=== PATIENT | male | born 1935 | race Caucasian/White ===

== ENCOUNTER 2017-11-01 14:43 | Inpatient (IN) | payer OTHER, BC ==
[~2017-11-01] VITALS: Ht 175.3 cm; Wt 98.5 kg
[~2017-11-01 14:43] MED LIST: ACID CONTROL150 MG PO; APRESOLINE10 MG PO; APRESOLINE50 MG PO; BASAGLAR K100 UNIT/1 SC; Cardizem CD,LA,Cartia,Tiazac,Dilacor,Taztia PO; DILTIAZEM 24HR180 MG PO; FLUTICASONE PRO16 GM BOTH NARES; GLIMEPIRIDE4 MG PO; JANUMET 50/51 TABLET PO; KLOR-CON 1010 ME1 PO; LANSOPRAZOLE30 MG PO; LIPITOR40 MG PO; NEURONTIN100 MG PO; PRED FORTE100 DROP/5 LEFT EYE; RANITIDINE HCL150 MG PO; ROCALTROL0.25 MCG PO; TRADJENTA5 MG PO; TROSPIUM CHLORI20 MG PO; TYLENOL REGULA325 MG PO; WARFARIN SODIUM4 MG PO; WARFARIN SODIUM5 MG PO
[2017-11-03] MEDS ORDERED: COUMADIN4 MG PO (08:41)
[2017-11-03] MEDS ORDERED: VESICARE10 MG PO (08:42)
[2017-11-03] MEDS ORDERED: KLOR-CON 1010 ME1 PO (08:43)
[2017-11-03] MEDS ORDERED: IRON325 M1 PO (08:49)
[2017-12-06 06:01] VITALS: BP 138/64
[2017-12-06 06:23] LABS: INTER. NORMALIZED RATIO 1.1
[2017-12-06 06:26] LABS: PTT 25.9 SEC (25-37)
[2017-12-06 10:04] VITALS: BP 144/79
[2017-12-06 15:35] VITALS: BP 147/82
[2017-12-06 20:14] VITALS: BP 141/71
[2017-12-07] VITALS (7 sets, daily range): BP systolic 105–159; BP diastolic 53–78
[2017-12-07 04:57] LABS: HEMATOCRIT 32.6 % (38.0-50.0); HEMOGLOBIN 11.7 G/DL (12.5-16.6); MCV 96.2 FL (86-99)
[2017-12-07 05:02] LABS: CHLORIDE 107 mEq/L (99-109); POTASSIUM 4.4 mEq/L (3.7-5.4); SODIUM 140 mEq/L (136-147)
[2017-12-07 05:03] LABS: INTER. NORMALIZED RATIO 1.2
[2017-12-07 05:04] LABS: GLUCOSE 201 mg/dL (70-99)
[2017-12-07 05:08] LABS: CREATININE 1.4 mg/dL (0.6-1.3); GFR ESTIMATE (CALCULATED) 52 mL/min/ (58.99-99999)
[2017-12-07 05:09] LABS: UREA NITROGEN (BUN) 20 mg/dL (9-23)
[2017-12-08 03:52] VITALS: BP 137/63
[2017-12-08 05:21] LABS: HEMATOCRIT 28.9 % (38.0-50.0); HEMOGLOBIN 10.5 G/DL (12.5-16.6); MCV 94.8 FL (86-99)
[2017-12-08 05:28] LABS: INTER. NORMALIZED RATIO 1.3
[2017-12-08 08:00] VITALS: BP 145/74
[2017-12-08 20:13] VITALS: BP 108/53
[2017-12-09 00:17] VITALS: BP 124/61
[2017-12-09 06:12] LABS: INTER. NORMALIZED RATIO 1.2
[2017-12-09 08:23] VITALS: BP 115/61
[2017-12-09] MEDS ORDERED: BENADRYL25 MG PO (09:25)
[2017-12-09] MEDS ORDERED: COUMADIN1 MG PO (09:28)
[2017-12-09] MEDS ORDERED: TYLENOL REGULA325 MG PO (09:29)
[2017-12-09] MEDS ORDERED: OXYCODONE HCL5 MG PO (09:30)
[2017-12-09] MEDS ORDERED: SENNA PLUS TAB1 EACH PO (09:30)
[2017-12-09] MEDS ORDERED: CELECOXIB200 MG PO (09:30)
== END 2017-12-09 13:59 | DRG 470 ==
LOC: 2SOUTH 14:43 → ENRESERV 12-05 22:03 → 2SOUTH 12-06 05:20 → 3WEST 12-06 05:20 → 2SOUTH 12-06 11:31 → 3WEST 12-08 07:16 → ENRESERV 12-08 07:54 → 3EAST 12-08 14:32
PROVIDERS: Orthopaedic Surgery
PROC: 0SRC0J9 Replacement of Right Knee Joint with Synthetic Substitute, Cemented, Open Approach (ICD-10-PCS; principal; 2017-12-06)
DX: M17.11 Unilateral primary osteoarthritis, right knee (principal); E11.9 Type 2 diabetes mellitus without complications; E78.00 Pure hypercholesterolemia, unspecified; G89.29 Other chronic pain; I10 Essential (primary) hypertension; I48.2 Chronic atrial fibrillation; E55.9 Vitamin D deficiency, unspecified; Z85.46 Personal history of malignant neoplasm of prostate; Z79.4 Long term (current) use of insulin; Z79.01 Long term (current) use of anticoagulants
CPT/HCPCS: 36415; 71045; 80048; 82948; 85014; 85018; 85610; 85730; 86850; 86900; 86901; 97530 GO; C1713; J0131; J0690; J1100; J1170; J1815; J1885; J2250; J2405; J2795; J3010; J7030; J7050